=== PATIENT | male | born 1980 | race Caucasian/White ===

== ENCOUNTER 2016-08-31 10:39 | Emergency (ER) | payer OTHER ==
[2016-08-31 10:58] VITALS: BP 132/87
--- NOTE | 2016-08-31 11:26 | Emergency Department Report ---
Entered by FABIOLA ADAN, acting as scribe for FELIBERTO SAMPSON NP. Chief Complaint: Sore Throat Stated Complaint: SORE THROAT/EARS SWELLING - HPI History of Present Illness: 36 y/o male, non toxic, well developed, NAD, c/o sore throat begining 5 days ago , aggravated by swallowing. Associated bilateral ear pain, fever and chills. Denies CP, SOB, dizziness, FOLEY - Exam Vital Signs: Vital Signs 08/31/16 10:54 Temperature 98.2 F Pulse Rate 71 Respiratory 16 Rate Blood Pressure 132/87 O2 Sat by Pulse 99 Oximetry Physical Exam: GENERAL: The patient is a well-developed, well-nourished male in no apparent distress. Patient is alert and oriented x3. HEENT: Head is normocephalic and atraumatic. PERRL, Extraocular muscles are intact. Pupils are equal, round, and reactive to light and accommodation. Nares appeared normal. Mouth is well hydrated and without lesions. Mucous membranes are moist. Posterior pharynx is erythematous clear of any exudate or lesions. No tonsillitis. TMs are normal, no bulging MSE screening note: Focused history and physical exam performed. Due to findings the following was ordered: Strep test, Influenza ED Disposition for MSE Condition: Stable This documentation as recorded by the scribe,FABIOLA ADAN,accurately reflects the service I personally performed and the decisions made by ,FELIBERTO SAMPSON, JUAN.
--- NOTE | 2016-08-31 13:52 | Emergency Department Report ---
ED ENT HPI - General Chief complaint: Sore Throat Stated complaint: SORE THROAT/EARS SWELLING Time Seen by Provider: 08/31/16 13:39 Source: patient Mode of arrival: Ambulatory Limitations: No Limitations - History of Present Illness Initial comments: 36-year-old male past medical history none presents with complaint of 3-4 days of sore throat. Patient has no trismus and no stridor no wheezing speaking in full sentences, able to tolerate solids and fluids without significant difficulty. Patient states he has multiple sick contacts at home. MD complaint: sore throat Onset/Timin -: days(s) Location: throat Severity: mild Severity scale (0 -10): 6 Quality: aching Consistency: constant Improves with: none Associated Symptoms: sore throat - Related Data Previous Rx's Medication Instructions Recorded Last Taken Type Amoxicillin 500 mg PO BID #20 capsule 08/31/16 Unknown Rx Dextromethorphan HBr/B-Jay 1 each PO Q4H PRN #1 box 08/31/16 Unknown Rx [Cepacol Sorethroat-Cough Loyd] Ibuprofen [Motrin] 600 mg PO Q8H PRN #25 tablet 08/31/16 Unknown Rx ED Dental HPI - General Chief complaint: Sore Throat Stated complaint: SORE THROAT/EARS SWELLING Time Seen by Provider: 08/31/16 13:39 Source: patient Mode of arrival: Ambulatory Limitations: No Limitations - Related Data Previous Rx's Medication Instructions Recorded Last Taken Type Amoxicillin 500 mg PO BID #20 capsule 08/31/16 Unknown Rx Dextromethorphan HBr/B-Jay 1 each PO Q4H PRN #1 box 08/31/16 Unknown Rx [Cepacol Sorethroat-Cough Loyd] Ibuprofen [Motrin] 600 mg PO Q8H PRN #25 tablet 08/31/16 Unknown Rx ED Review of Systems ROS: Stated complaint: SORE THROAT/EARS SWELLING Other details as noted in HPI Constitutional: denies: chills, fever Eyes: denies: eye pain, eye discharge, vision change ENT: throat pain. denies: ear pain Respiratory: denies: cough, shortness of breath, wheezing Cardiovascular: denies: chest pain, palpitations Endocrine: no symptoms reported Gastrointestinal: denies: abdominal pain, nausea, diarrhea Genitourinary: denies: urgency, dysuria Musculoskeletal: denies: back pain, joint swelling, arthralgia Skin: denies: rash, lesions Neurological: denies: headache, weakness, paresthesias Psychiatric: denies: anxiety, depression Hematological/Lymphatic: denies: easy bleeding, easy bruising ED Past Medical Hx - Past Medical History Previous Medical History?: No - Surgical History Past Surgical History?: No - Social History Smoking Status: Current Every Day Smoker Substance Use Type: Marijuana - Medications Home Medications: Home Medications Medication Instructions Recorded Confirmed Last Taken Type Amoxicillin 500 mg PO BID #20 capsule 08/31/16 Unknown Rx Dextromethorphan HBr/B-Jay 1 each PO Q4H PRN #1 box 08/31/16 Unknown Rx [Cepacol Sorethroat-Cough Loyd] Ibuprofen [Motrin] 600 mg PO Q8H PRN #25 tablet 08/31/16 Unknown Rx ED Physical Exam - General Limitations: No Limitations General appearance: alert, in no apparent distress - Head Head exam: Present: atraumatic, normocephalic - Eye Eye exam: Present: normal appearance, PERRL, EOMI - ENT ENT exam: Present: mucous membranes moist - Expanded ENT Exam Expanded Throat exam: Positive: tonsillar erythema, tonsillar exudate - Neck Neck exam: Present: normal inspection, full ROM - Respiratory Respiratory exam: Present: normal lung sounds bilaterally. Absent: respiratory distress - Cardiovascular Cardiovascular Exam: Present: regular rate, normal rhythm. Absent: systolic murmur, diastolic murmur, rubs, gallop - GI/Abdominal GI/Abdominal exam: Present: soft, normal bowel sounds - Rectal Rectal exam: Present: deferred - Extremities Exam Extremities exam: Present: normal inspection - Back Exam Back exam: Present: normal inspection - Neurological Exam Neurological exam: Present: alert, oriented X3, CN II-XII intact, normal gait - Psychiatric Psychiatric exam: Present: normal affect, normal mood - Skin Skin exam: Present: warm, dry, intact, normal color. Absent: rash ED Course Vital Signs 08/31/16 10:54 Temperature 98.2 F Pulse Rate 71 Respiratory 16 Rate Blood Pressure 132/87 O2 Sat by Pulse 99 Oximetry ED Medical Decision Making - Medical Decision Making A/P: Strep Pharyngitis 1- Motrin when necessary, benzocaine lozenges, amoxicillin x 10 day course 2- pt tolerating PO fluid and food without difficulty Critical care attestation.: If time is entered above; I have spent that time in minutes in the direct care of this critically ill patient, excluding procedure time. ED Disposition Clinical Impression: Strep pharyngitis Disposition: DISCHARGED TO HOME OR SELFCARE Is pt being admited?: No Does the pt Need Aspirin: No Condition: Stable Instructions: Strep Throat (ED) Prescriptions: Amoxicillin 500 mg PO BID #20 capsule Dextromethorphan HBr/B-Jay [Cepacol Sorethroat-Cough Loyd] 1 each PO Q4H PRN # 1 box PRN Reason: Sore Throat Ibuprofen [Motrin] 600 mg PO Q8H PRN #25 tablet PRN Reason: Pain Referrals: KILEY BROOKS MD [Staff Physician] - 3-5 Days Forms: Work/School Release Form(ED) Time of Disposition: 14:10
== END 2016-08-31 14:16 | disposition home or self-care (01) ==
LOC: ED 10:39
DX: J02.0 Streptococcal pharyngitis (principal); F17.200 Nicotine dependence, unspecified, uncomplicated; F12.10 Cannabis abuse, uncomplicated
CPT/HCPCS: 87400; 87430; 99282

== ENCOUNTER 2016-11-06 11:19 | Emergency (ER) | payer OTHER ==
[2016-11-06 11:31] VITALS: BP 151/90
--- NOTE | 2016-11-06 12:54 | Emergency Department Report ---
- General Chief Complaint: Upper Respiratory Infection Stated Complaint: SINUS Time Seen by Provider: 11/06/16 12:49 Source: patient Mode of arrival: Ambulatory Limitations: No Limitations - History of Present Illness Initial Comments: sinus congestion and pain x 4 days hx recurrent sinus infections last tx with amoxicillin 1 month ago MD Complaint: rhinorrhea, nasal congestion, sinus pain Onset/Timin -: days(s) Severity: moderate Severity scale (0 -10): 4 Quality: sharp, aching Consistency: constant Improves With: nothing Worsens With: activity, changing head position Associated Symptoms: fever (noc fever ), rhinorrhea, nasal congestion, ear pain. denies: chills, myalgias, stiff neck, cough, chest pain, shortness of breath, nausea, vomiting, dysuria, rash, confusion, right sweats, epistaxis, hoarseness Treatments Prior to Arrival: none - Related Data Previous Rx's Medication Instructions Recorded Last Taken Type Amoxicillin 500 mg PO BID #20 capsule 08/31/16 Unknown Rx Dextromethorphan HBr/B-Jay 1 each PO Q4H PRN #1 box 08/31/16 Unknown Rx [Cepacol Sorethroat-Cough Loyd] Ibuprofen [Motrin] 600 mg PO Q8H PRN #25 tablet 08/31/16 Unknown Rx Amoxicillin/K Clav Tab [Augmentin 1 tab PO Q12HR #20 tab 11/06/16 Unknown Rx 875 mg] Cetirizine HCl [ZyrTEC] 10 mg PO DAILY #30 capsule 11/06/16 Unknown Rx Fluticasone [Flonase] 1 spray NS QDAY #1 bottle 11/06/16 Unknown Rx Ibuprofen [Motrin 800 MG tab] 800 mg PO Q8HR PRN #30 tablet 11/06/16 Unknown Rx Allergies Allergy/AdvReac Type Severity Reaction Status Date / Time No Known Allergies Allergy Unverified 11/06/16 11:31 ED Review of Systems ROS: Stated complaint: SINUS Other details as noted in HPI Constitutional: denies: chills, fever Eyes: denies: eye pain, eye discharge, vision change ENT: ear pain, congestion. denies: dental pain, hearing loss, epistaxis Respiratory: denies: cough, shortness of breath, wheezing Cardiovascular: denies: chest pain, palpitations Endocrine: no symptoms reported Gastrointestinal: denies: abdominal pain, nausea, diarrhea Genitourinary: denies: urgency, dysuria Musculoskeletal: denies: back pain, joint swelling, arthralgia Skin: denies: rash, lesions Neurological: denies: headache, weakness, paresthesias Psychiatric: denies: anxiety, depression Hematological/Lymphatic: denies: easy bleeding, easy bruising ED Past Medical Hx - Past Medical History Previous Medical History?: Yes Additional medical history: sinus problems, seasonal allergies - Surgical History Past Surgical History?: No - Social History Smoking Status: Current Every Day Smoker Substance Use Type: Marijuana - Medications Home Medications: Home Medications Medication Instructions Recorded Confirmed Last Taken Type Amoxicillin 500 mg PO BID #20 capsule 08/31/16 Unknown Rx Dextromethorphan HBr/B-Jay 1 each PO Q4H PRN #1 box 08/31/16 Unknown Rx [Cepacol Sorethroat-Cough Loyd] Ibuprofen [Motrin] 600 mg PO Q8H PRN #25 tablet 08/31/16 Unknown Rx Amoxicillin/K Clav Tab [Augmentin 1 tab PO Q12HR #20 tab 11/06/16 Unknown Rx 875 mg] Cetirizine HCl [ZyrTEC] 10 mg PO DAILY #30 capsule 11/06/16 Unknown Rx Fluticasone [Flonase] 1 spray NS QDAY #1 bottle 11/06/16 Unknown Rx Ibuprofen [Motrin 800 MG tab] 800 mg PO Q8HR PRN #30 tablet 11/06/16 Unknown Rx ED Physical Exam - General Limitations: No Limitations General appearance: alert, in no apparent distress - Head Head exam: Present: atraumatic, normocephalic - Eye Eye exam: Present: normal appearance, PERRL, EOMI Pupils: Present: normal accommodation - Expanded ENT Exam Expanded TM/Canal exam: Erythema: Right TM, Left TM, Effusion: Right TM, Mastoid Tenderness: Right TM, Left TM, Canal Tenderness: Right TM, Left TM Mouth exam: Present: normal external inspection, tongue normal. Absent: trismus Teeth exam: Absent: dental caries Throat exam: Positive: tonsillar erythema, other (noth). Negative: tonsillomegaly, tonsillar exudate, R peritonsillar mass, L peritonsillar mass - Neck Neck exam: Present: normal inspection, full ROM. Absent: tenderness, lymphadenopathy, thyromegaly - Respiratory Respiratory exam: Present: normal lung sounds bilaterally. Absent: respiratory distress - Cardiovascular Cardiovascular Exam: Present: regular rate, normal rhythm. Absent: systolic murmur, diastolic murmur, rubs, gallop - GI/Abdominal GI/Abdominal exam: Present: soft, normal bowel sounds - Rectal Rectal exam: Present: deferred - Extremities Exam Extremities exam: Present: normal inspection - Back Exam Back exam: Present: normal inspection - Neurological Exam Neurological exam: Present: alert, oriented X3, CN II-XII intact, normal gait, motor sensory deficit, reflexes normal - Psychiatric Psychiatric exam: Present: normal affect, normal mood - Skin Skin exam: Present: warm, dry, intact, normal color. Absent: rash ED Course Vital Signs 11/06/16 11:27 Temperature 98.9 F Pulse Rate 86 Respiratory 16 Rate Blood Pressure 151/90 O2 Sat by Pulse 99 Oximetry ED Medical Decision Making - Medical Decision Making pt is a 36 y/o aam with hx of recurrent sinusitis who presents for sinus congestion and pain x 1 week symptoms include sinus pressure pain and yellow green nasal drip, pt endorse noc fever 100.4 subjective pt seen by pcp last month rx amoxicillin po exam: bilat frontal and maxillary sinus pain , tm erythema bilat effusion right, nose: bilat turbinate erythema yellow post nasal drip, pharnyx: moderate erythema no exudate no lesions uvula midline airway is patent no stridor, plan: augmentin po, flonase, ibuprofen , zyrtec follow up pcp as scheduled pt verbalized agreement and understanding with same. Critical care attestation.: If time is entered above; I have spent that time in minutes in the direct care of this critically ill patient, excluding procedure time. ED Disposition Clinical Impression: Acute maxillary sinusitis Qualifiers: Recurrence: recurrent Qualified Code(s): J01.01 - Acute recurrent maxillary sinusitis AOM (acute otitis media) Qualifiers: Otitis media type: serous Laterality: bilateral Recurrence: not specified as recurrent Qualified Code(s): H65.03 - Acute serous otitis media, bilateral Disposition: - TO HOME OR SELFCARE Is pt being admited?: No Does the pt Need Aspirin: No Condition: Good Instructions: Sinusitis (ED), Otitis Media (ED) Additional Instructions: follow up your pcp as scheduled , and ENT if symptoms persist Prescriptions: Amoxicillin/K Clav Tab [Augmentin 875 mg] 1 tab PO Q12HR #20 tab Cetirizine HCl [ZyrTEC] 10 mg PO DAILY #30 capsule Fluticasone [Flonase] 1 spray NS QDAY #1 bottle Ibuprofen [Motrin 800 MG tab] 800 mg PO Q8HR PRN #30 tablet PRN Reason: pain Referrals: PRIMARY CARE, [Primary Care Provider] - 3-5 Days Forms: Work/School Release Form(ED) Time of Disposition: 13:03
== END 2016-11-06 13:10 | disposition home or self-care (01) ==
LOC: ED 11:19
DX: J01.01 Acute recurrent maxillary sinusitis (principal); H65.03 Acute serous otitis media, bilateral; F17.200 Nicotine dependence, unspecified, uncomplicated; F12.10 Cannabis abuse, uncomplicated
CPT/HCPCS: 99282